=== PATIENT | male | born 1990 | race African-American/Black ===

== ENCOUNTER 2019-01-08 13:35 | Emergency (ER) | payer SELFPAY ==
[2019-01-08 13:41] VITALS: BP 127/71; PULSE 86; TEMP 98.9; BMI 25.4
[2019-01-08] MEDS ORDERED: AMOX TR/POT CLAV 875MG/125MG TABLETS (FP) PO ONE (14:07)
[2019-01-08] MEDS ORDERED: KETOROLAC TROMETHAMINE 60 MG/2 ML VIAL IM ONE (14:07)
[2019-01-08] MEDS ORDERED: KETOROLAC TROMETHAMINE 60 MG/2 ML VIAL ONE (14:11)
[2019-01-08] MEDS ORDERED: AMOX TR/POT CLAV 875MG/125MG TABLETS (FP) ONE (14:11)
--- NOTE | 2019-01-08 14:15 | PDOC ---
History of Present Illness - General Chief Complaint: Toothache Stated Complaint: LT FACE BOIL Time Seen by Provider: 01/08/19 13:48 History Source: Patient Exam Limitations: No Limitations - History of Present Illness Initial Comments: 01/08/19 14:37 Patient is here with complaints of severe tooth pain and swelling that started to his left jaw this morning. States had a cracked molar a few months ago but did not give him problems until a few days ago where it started to become painful. Noted the swelling to his face this morning. Denies fevers, denies any fluctuant masses in his mouth but has exquisite tenderness to the area where the cracked molar areas, lower left jaw/second molar Timing/Duration: unsure Severity: moderate Associated Symptoms: reports: fever/chills Past History - Travel Traveled outside of the country in the last 30 days: No Close contact w/someone who was outside of country & ill: No - Past Medical History Allergies/Adverse Reactions: Allergies Allergy/AdvReac Type Severity Reaction Status Date / Time banana Allergy Mild Verified 01/08/19 13:41 celery Allergy Mild Verified 01/08/19 13:41 Home Medications: Ambulatory Orders Amoxicillin - [Amoxicillin 500mg Capsule -] 500 mg PO TID #21 capsule 01/08/19 Naproxen [Naprosyn -] 500 mg PO BID #30 tablet 01/08/19 COPD: No - Suicide/Smoking/Psychosocial Hx Smoking History: Never smoked Review of Systems - Review of Systems Able to Perform ROS?: Yes Is the patient limited [place] proficient: Yes Constitutional: Yes: Symptoms Reported, See HPI, Loss of Appetite, Malaise. No : Fever HEENTM: Yes: Symptoms Reported, See HPI, Mouth Pain, Dental Problems, Mouth Swelling Respiratory: Yes: See HPI. No: Symptoms reported All Other Systems: Reviewed and Negative *Physical Exam - Vital Signs Last Vital Signs Temp Pulse Resp BP Pulse Ox 98.9 F 86 18 127/71 100 01/08/19 13:39 01/08/19 13:39 01/08/19 13:39 01/08/19 13:39 01/08/19 13:39 - Physical Exam General Appearance: Yes: Nourished, Appropriately Dressed, Apparent Distress, Moderate Distress HEENT: positive: LUZ MARIA, Normal ENT Inspection, TMs Normal, Pharynx Normal, Other (second left lower molar cracked in half. 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 NML intact, Fully Oriented, Alert, Normal Mood/ Affect, Normal Response, Motor Strength 01/23 Medical Decision Making - Medical Decision Making 01/08/19 14:40 Dental abscess, will treat with amoxicillin NSAIDs and encourage patient to follow-up immediately for dental evaluation *DC/Admit/Observation/Transfer Diagnosis at time of Disposition: Toothache - Discharge Dispostion Disposition: HOME Condition at time of disposition: Stable Decision to Admit order: No - Prescriptions Prescriptions: Amoxicillin - [Amoxicillin 500mg Capsule -] 500 mg PO TID #21 capsule Naproxen [Naprosyn -] 500 mg PO BID #30 tablet - Referrals - Patient Instructions Printed Discharge Instructions: DI for Tooth Abscess Additional Instructions: Rest, drink lots of fluids: Teas, water, soups Saltwater gargles/ keep mouth clean and rinse after each meal May use wet teabag for pain relief to area Avoid hard chewing foods, stick to ice cream, Jell-O, yogurt etc. Tylenol or Motrin for fever and pain Complete all medication as prescribed Seek dental appointment as soon as possible for evaluation of dental injury/pain Followup with private physician in one to 2 days as needed Return to emergency department for worsened symptoms, fevers, swelling to face or worsened pain - Post Discharge Activity Forms/Work/School Notes: Back to Work
== END 2019-01-08 14:26 | disposition home or self-care (01) ==
LOC: JERFT 13:35
PROC: 3E0233Z Introduction of Anti-inflammatory into Muscle, Percutaneous Approach (ICD-10-PCS; principal; 2019-01-08)
DX: K08.89 Other specified disorders of teeth and supporting structures (principal)
CPT/HCPCS: 99281-25